=== PATIENT | male | born 1960 | race Caucasian/White ===

== ENCOUNTER 2017-09-06 01:11 | Day surgery (SDC) | payer BC ==
[2017-09-05 08:28] VITALS: BP 129/88
[2017-09-05 10:18] LABS: BASOPHIL % 0.6 % (0.0-0.2); EOSINOPHIL # 0.1 10^3/uL (0.0-0.2); EOSINOPHIL % 2.1 % (0.0-5.0); LYMPHOCYTES # 1.4 10^3/uL (1.0-4.8); LYMPHOCYTES % 26.1 % (24.0-44.0); MEAN CELL HGB 29.3 pg (26-34); MEAN CELL HGB CONCENTRATION 32.6 g/dL (33-37); MEAN CORP VOLUME 89.8 fL (78-100); MEAN PLATELET VOLUME 9.7 fL (7.8-11.0); MONOCYTES # 0.6 10^3/uL (0.3-0.8); MONOCYTES % 11.7 % (5.0-12.0); NEUTROPHIL # 3.1 10^3/uL (1.8-7.7); NEUTROPHILS % 59.3 % (41.0-85.0); RED CELL DISTRIBUTION WIDTH 13.5 % (11.5-14.5); WHITE BLOOD CELL 5.3 10^3/uL (4.5-11.0)
[2017-09-05 10:58] LABS: CALCIUM 9.3 mg/dL (8.4-10.5); CARBON DIOXIDE 25.6 mmol/L (20.0-32)
--- NOTE | 2017-09-05 17:36 | PCM.EKG ---
[facility] Test Date: 2017-09-05 Test Time: 08:35:04 Pat Name: JENNIFER FARMER Department: Patient ID: [facility]-[id number] Room: Gender: M Staff Registered Nurse: AMADA KATZ : 1960 Requested By: DAYNA PETTY Order Number: [id number] Reading MD: Ijeoma Marie Measurements Intervals [place] Rate: 63 P: 27 [place]: 192 QRS: 20 QRSD: 92 T: 52 QT: 410 QTc: 419 Interpretive Statements Normal sinus rhythm Normal ECG No previous ECG available for comparison Electronically Signed On 09-10-2017 15:32:08 CDT by Ijeoma Marie Please click the below link to view image of tracing.
[2017-09-06] VITALS (8 sets, daily range): BP systolic 106–140; BP diastolic 64–93
[~2017-09-06] VITALS: Ht 185.4 cm; Wt 103.4 kg
[~2017-09-06 01:11] MED LIST: ASCO10002 PO; CIPR500T86 PO; CYAN25002 SL; LACTATED RINGERS 1,000 ML IV SCH; MULT-275 PO; TAMS0.4C2 PO; TRAM50TA PO; TYLENOL PO ONE
[2017-09-06] MEDS ORDERED: LACTATED RINGERS 1,000 ML ONE (05:21)
[2017-09-06] MEDS ORDERED: LEVAQUIN 100 ML IV ONE (05:21)
[2017-09-06] MEDS ORDERED: LASIX ONE (05:25)
[2017-09-06] MEDS ORDERED: TYLENOL PO ONE ×2 (06:00→06:58)
[2017-09-06] MEDS ORDERED: LACTATED RINGERS 1,000 ML IV SCH ×2 (06:00→10:30)
[2017-09-06] MEDS ORDERED: ZOFRAN ONE (06:42)
[2017-09-06] MEDS ORDERED: DECADRON ONE (06:42)
[2017-09-06] MEDS ORDERED: VERSED ONE (06:43)
[2017-09-06] MEDS ORDERED: SUBLIMAZE ONE (06:43)
[2017-09-06] MEDS ORDERED: DIPRIVAN IV ONE (06:43)
[2017-09-06] MEDS ORDERED: SUBLIMAZE IV PRN (07:30)
[2017-09-06] MEDS ORDERED: DILAUDID IV PRN (07:30)
[2017-09-06] MEDS ORDERED: LASIX IV ONE (08:00)
[2017-09-06] MEDS ORDERED: ACET-685 PO (10:06)
[2017-09-06] MEDS ORDERED: NORCO 7.5MG PO PRN (10:30)
[2017-09-06] MEDS ORDERED: LASIX IV SCH (10:30)
--- NOTE | 2017-09-06 10:38 | OPH ---
DATE OF SURGERY: 09/06/2017 PREOPERATIVE DIAGNOSIS: Right renal calculus. FINAL DIAGNOSIS: Right renal calculus. PROCEDURES: Right ESWL. DESCRIPTION OF PROCEDURE: The patient was brought to the lithotripsy room, was put in supine position on the lithotripsy table. A right preop renal ultrasound was easily performed, which revealed a stone in the middle pole of the right kidney measuring 9.1 mm in diameter. There was no evidence of hydronephrosis, no cysts or masses noted. After the patient was given an LMA general anesthesia and after localization of the stone with the use of an ultrasound and fluoroscopy, a right ESWL was then performed using a Dornier Compact Delta II Lithotripter. A total of 1500 shockwaves were delivered to the stone in the middle pole of the right kidney under ultrasound guidance. After fragmentation of the stone as noted in the ultrasound, the procedure was terminated. The patient was awakened and was transferred to the recovery room in stable condition. George Vila MD DR: DELBERT/quentin JOB# [id number]
[2017-09-06] MEDS ORDERED: EPHEDRINE SULFATE ONE (11:04)
== END 2017-09-06 10:49 | disposition home or self-care (01) | DRG 694 ==
LOC: SDC 01:11
PROVIDERS: ATTEND Urology
DX: N20.0 Calculus of kidney (principal); E66.3 Overweight; Z68.28 Body mass index [BMI] 28.0-28.9, adult
CPT/HCPCS: 36415; 50590; 80048; 85025; 85610; 93005; A9150; J1100; J1956; J2250; J2405; J3010; J3490 ×2; J7120; J1940

== ENCOUNTER 2020-07-26 13:53 | Emergency (ER) | payer BC ==
[~2020-07-26] VITALS: Ht 185.4 cm; Wt 95.3 kg
[~2020-07-26 13:53] MED LIST changes: +ACET-685 PO; +ASCO100016 PO; -ASCO10002 PO; -LACTATED RINGERS 1,000 ML IV SCH; -TYLENOL PO ONE; +VITA50004 PO
--- NOTE | 2020-07-26 14:09 | NUR ---
ARRIVAL PT ARRIVED TO ED WITH C/O KIDNEY STONE. PT WAS SEEN BY DR LESLIE WHERE HE WAS TOLD HE HAS A 7.6MM RIGHT RENAL CALCULI AND WAS SENT HERE FOR CT AND POSSITBLE CYSTO WITH STENT INSERTION. BEDSIDE MONITORS APPLIED. VITAL SIGNS STABLE. BED IN LOW LOCKED POSITION, CALL LIGHT WITHIN REACH.
[2020-07-26 14:19] VITALS: BP 144/94
--- NOTE | 2020-07-26 14:22 | ER.PDOC ---
General Chief Complaint: Requesting Medical Care Stated Complaint: LOWER ABD PAIN/MALE Time seen by MD: 14:22 Source: patient Exam Limitations: no limitations History of Present Illness Initial Comments pt with hx of kidney stones here with rlq pain urology concerned about size Timing/Duration: 24 hours Severity/Quality: moderate Radiation: RLQ, flank (right) Associated Symptoms: nausea/vomiting Exacerbated by: nothing Relieved By: nothing Allergies: Coded Allergies: morphine (Verified Adverse Reaction, Intermediate, ITCHING, 07/25/20) REPORTS SEVERE ITCHING WHEN MORPHINE ADMINISTERED. Home Meds Active Scripts Acetaminophen With Codeine (TYLENOL WITH CODEINE #3 TABLET) 1 Each Tablet, 1 EACH PO Q4, #15 Prov:DAYNA PETTY MD 09/20/17 Reported Medications Tramadol Hcl (TRAMADOL HCL) 50 Mg Tablet, 1 TAB PO TID PRN for PAIN 4 - 6, #90 TAB 07/25/20 Vitamin D3/Folic Acid (Dermacinrx Purefolix Tablet) 5,000 Unit-1 Mg Tablet, 1 TAB PO QD for 30 Days, #30 TAB 0 Refills 07/25/20 Tamsulosin Hcl (TAMSULOSIN HCL) 0.4 Mg Cap.er.24h, 1 CAP PO DAILY, #30 CAP 5 Refills 07/15/17 Multivitamin With Minerals (MEN'S ONE DAILY) 1 Each Tablet, 1 EACH PO DAILY, TABLET 07/12/17 Cyanocobalamin (Vitamin B-12) (VITAMIN B-12) 2,500 Mcg Tab.subl, 5000 MCG SL DAILY 07/12/17 Ascorbic Acid (VITAMIN C) 1,000 Mg Tablet, 500 MG PO DAILY, TABLET 07/12/17 Discontinued Scripts Acetaminophen With Codeine (TYLENOL WITH CODEINE #3 TABLET) 1 Each Tablet, 1 EACH PO Q4, #15 Prov:DAYNA PETTY MD 09/06/17 Vital Signs First Vital Signs Date Time Temp Pulse Resp B/P (MAP) Pulse Ox O2 Delivery O2 Flow Rate FiO2 07/26/20 14:19 98.1 67 16 07/26/20 14:19 144/94 (111) 97 Room Air Last Vital Signs Date Time Temp Pulse Resp B/P (MAP) Pulse Ox O2 Delivery O2 Flow Rate FiO2 07/26/20 15:20 98.1 69 16 133/81 (98) 97 Room Air Past Medical History Medical History: other (kidney stones) Family History Significant Family History: no pertinent family hx Social History Smoking: non-smoker Drug Use: none Constitutional: denies no symptoms reported, denies see HPI, denies chills, denies diaphoresis, denies fever, denies malaise, denies weakness, denies other EENTM: denies no symptoms reported, denies see HPI, denies eye pain, denies blurred vision, denies tearing, denies double vision, denies ear pain, denies ear discharge, denies nose pain, denies nose congestion, denies throat pain, denies throat swelling, denies mouth pain, denies mouth swelling, denies other Respiratory: denies no symptoms reported, denies see HPI, denies cough, denies orthopnea, denies shortness of breath, denies SOB with exertion, denies SOB at rest, denies stridor, denies wheezing, denies other Cardiovascular: denies no symptoms reported, denies see HPI, denies chest pain, denies edema, denies irregular heart rate, denies lightheadedness, denies palpitations, denies syncope, denies other Gastrointestinal: abdominal pain Genitourinary: flank pain, pain Musculoskeletal: denies no symptoms reported, denies see HPI, denies back pain, denies gout, denies joint pain, denies joint swelling, denies muscle pain, denies muscle stiffness, denies neck pain, denies other Skin: denies no symptoms reported, denies see HPI, denies change in color, denies change in hair/nails, denies dryness, denies lesions, denies lumps, denies rash, denies other Psychiatric/Neurological: denies no symptoms reported, denies see HPI, denies a nxiety, denies depressed, denies emotional problems, denies headache, denies numbness, denies paresthesia, denies pre-existing deficit, denies seizure, denies tingling, denies tremors, denies weakness, denies other Endocrine: denies no symptoms reported, denies see HPI, denies excessive sweating, denies flushing, denies intolerance to cold, denies intolerance to heat, denies increased hunger, denies increased thrist, denies increased urine, denies unexplained weight gain, denies unexplaned weight loss, denies other Hematologic/Lymphatic: denies no symptoms reported, denies see HPI, denies anemia, denies blood clots, denies easy bleeding, denies easy bruising, denies swollen glands, denies other Physical Exam General Appearance: Moderate Distress HEENT: PERRL/EOMI, Normal ENT Inspection, TMs Normal, Pharynx Normal Neck: Non-Tender, Full Range of Motion, Supple, Normal Inspection Respiratory: chest non-tender, lungs clear, normal breath sounds, no respiratory distress, no accessory muscle use Cardiovascular: Normal Peripheral Pulses, Regular Rate, Rhythm, No Edema, No Gallop, No JVD, No Murmur Gastrointestinal: Tenderness (mild right abd) Back: Normal Inspection, No CVA Tenderness, No Vertebral Tenderness Extremities: Normal Range of Motion, Non-Tender, Normal Inspection, No Pedal Edema, No Calf Tenderness, Normal Capillary Refill, Pelvis Stable Neurologic/Psychiatric: electroplater automatic II-XII NML as Tested, No Motor/Sensory Deficits, Alert, Normal Mood/Affect, Oriented x 3 Skin: Normal Color, Warm/Dry Lymphatic: No Adenopathy Results/Orders Results/Orders Orders - JOHNY RANDOLPH MD Ct Abd/Pelvis Wo Iv Contrast (07/26/20 14:22) Urinalysis (07/26/20 14:46) Saline Lock (07/26/20 14:46) Ondansetron Hcl/Pf (Zofran) (07/26/20 15:04) Ketorolac Tromethamine (Toradol) (07/26/20 15:04) Ketorolac Tromethamine (Toradol) (07/26/20 15:05) Ondansetron Hcl/Pf (Zofran) (07/26/20 15:05) Ceftriaxone Sodium (Rocephin) (07/26/20 15:11) Ceftriaxone Sodium (Rocephin) (07/26/20 15:12) Vital Signs Date Time Temp Pulse Resp B/P (MAP) Pulse Ox O2 Delivery O2 Flow Rate FiO2 07/26/20 15:20 98.1 69 16 133/81 (98) 97 Room Air 07/26/20 14:19 98.1 67 16 97 07/26/20 14:19 98.1 67 16 144/94 (111) 97 Room Air 07/26/20 14:19 98.1 67 16 Administered Medications Medications (Trade) Dose Ordered Sig/Semaj Route PRN Reason Start Time Stop Time Status Last Admin Dose Admin Ceftriaxone Sodium 1000 mg/ Sodium Chloride 100 ml @ 200 mls/hr OT STAT IV 07/26/20 15:11 07/26/20 15:26 DC 07/26/20 15:16 200 MLS/HR Ketorolac Tromethamine (Toradol) 30 mg OT STAT IV 07/26/20 15:05 07/26/20 15:07 DC 07/26/20 15:13 30 MG Ondansetron HCl (Zofran) 4 mg Q4H STAT IV 07/26/20 15:05 07/26/20 15:07 DC 07/26/20 15:13 4 MG Progress Progress 3 mm stone discussed with pt and Dr Petty agree to out pt tx Departure Time of Disposition: 15:19 Disposition: 01 HOME, SELF-CARE Impression: Primary Impression: Calculus of ureter Condition: Improved Referrals: LESLIE OROZCO MD (PCP) PRIMARY CARE PROVIDER Comments ultram phenergan f/u saturday Duration or Time Spent with Pa: 20 JOHNY RANDOLPH MD Jul 26, 2020 14:22
--- NOTE | 2020-07-26 14:55 | DIREP ---
PROCEDURE:CT ABDOMEN/PELVIS W/O CONTRAST COMPARISON:[facility], CT, CT ABD/PELVIS W/O, 07/08/2017, 10:25 AM. INDICATIONS:kidney stones TECHNIQUE:Axial images were created through the abdomen and pelvis without intravenous contrast material. No oral contrast was administered. Sagittal and coronal reconstructions were performed from source images. FINDINGS: LUNG BASES:Normal. No visible pulmonary or pleural disease. LIVER:Normal. No significant liver lesions are identified. BILIARY:Multiple small gallstones PANCREAS:Normal. No lesion, fluid collection, ductal dilatation, or atrophy. SPLEEN:Normal. No enlargement or focal lesion. ADRENALS:Normal. No mass or enlargement. URINARY TRACT:Multiple bilateral renal collecting system stones. Largest measuring 5 mm in size. Mild prominence of the right collecting system. 3 mm right ureteral stone, at the level of the umbilicus. AORTA/VASCULAR:Normal. No aneurysm. RETROPERITONEUM:Normal. No mass or adenopathy. BOWEL/MESENTERY:The appendix is visualized and appears normal. There is no intestinal obstruction, free fluid, free air or mesenteric inflammatory changes. ABDOMINAL WALL:Normal. No mass or hernia. PELVIC ORGANS:Normal. No visible mass. Pelvic organs appropriate for patient age. BONES:There are degenerative changes of the spine. OTHER:Negative. CONCLUSION:Multiple bilateral renal collecting system calculi, with mild prominence of the right collecting system. Small right-sided ureteral stone at the level of the umbilicus. Dictated by: Mikie Babb MD on 07/26/2020 at 02:49 PM
[2020-07-26] MEDS ORDERED: TORADOL ONE (15:04)
[2020-07-26] MEDS ORDERED: ZOFRAN ONE (15:04)
[2020-07-26] MEDS ORDERED: TORADOL IV STA (15:05)
[2020-07-26] MEDS ORDERED: ZOFRAN IV STA (15:05)
--- NOTE | 2020-07-26 15:09 | NUR ---
MALINDA RANDOLPH ON THE PHONE WITH DOCTOR PETTY DISCUSSING PATIENT.
[2020-07-26] MEDS ORDERED: ROCEPHIN 1,000 MG in NS 100ML 100 ML IV STA (15:11)
[2020-07-26] MEDS ORDERED: ROCEPHIN ONE (15:12)
[2020-07-26 15:20] VITALS: BP 133/81
[2020-07-29] MEDS ORDERED: TRAM50TA PO (10:23)
== END 2020-07-26 15:26 | disposition home or self-care (01) ==
LOC: ER 13:53
DX: N20.1 Calculus of ureter (principal); Z79.1 Long term (current) use of non-steroidal anti-inflammatories (NSAID); Z79.899 Other long term (current) drug therapy; Z87.442 Personal history of urinary calculi; Z88.5 Allergy status to narcotic agent
CPT/HCPCS: 74176; 96374; 96375; 99284; J0696 ×2; J1885; J2405; J7050

== ENCOUNTER → 2020-07-29 | Day surgery (SDC) | payer BC ==
[2020-07-25 13:32] VITALS: BP 120/75
[2020-07-25 13:59] LABS: BASOPHIL # 0.1 10^3/uL (0.0-0.1); BASOPHIL % 0.8 % (0.0-0.2); EOSINOPHIL # 0.2 10^3/uL (0.0-0.2); LYMPHOCYTES # 2.07 10^3/uL1 (1.0-4.8); LYMPHOCYTES % 27.8 % (24.0-44.0); MEAN CORP HGB 30.1 pg (26-34); MONOCYTES # 0.9 10^3/uL (0.3-0.8); MONOCYTES % 11.7 % (5.0-12.0); NEUTROPHIL # 4.3 10^3/uL (1.8-7.7); NEUTROPHILS % 57.6 % (41.0-85.0); RED CELL DISTRIBUTION WIDTH 13.1 % (11.5-14.5)
[2020-07-25 14:09] LABS: CALCIUM 9.3 mg/dL (8.4-10.5); CARBON DIOXIDE 32.2 mmol/L (20.0-32)
--- NOTE | 2020-07-25 14:31 | PCM.EKG ---
[facility] Test Date: 2020-07-25 Test Time: 13:45:42 Pat Name: JENNIFER FARMER Department: Room: Gender: M [employer]: JOJO : 1960 Requested By: DAYNA PETTY Order [facility]: [id number] Reading MD: Measurements Intervals [place] Rate: 67 P: 59 [place]: 172 QRS: -8 QRSD: 100 T: 55 QT: 398 QTc: 420 Interpretive Statements Normal sinus rhythm Compared to ECG 09/05/2017 08:35:04 No significant changes Please click the below link to view image of tracing.
[~2020-07-29] VITALS: Ht 185.4 cm; Wt 95.3 kg
[~2020-07-29] MED LIST changes: +APRESOLINE IV PRN; +BENADRYL IV PRN; +DEMEROL IV PRN; +DIPRIVAN IV ONE; +LACTATED RINGERS 1,000 ML IV SCH; +LASIX IV ONE; +LASIX ONE; +LEVAQUIN 100 ML IV ONE; +LIDOCAINE 2% VIAL ONE; +MORPHINE SULFATE IV PRN; +NORCO 7.5MG PO PRN; +PHENERGAN IV PRN; +SUBLIMAZE IV PRN; +SUBLIMAZE ONE; +TRANDATE IV PRN; +VERSED ONE; +XOPENEX IH PRN; +ZOFRAN IV PRN; +ZOFRAN ONE
[2020-07-29 06:56] VITALS: BP_SYST 131
[2020-07-29] MEDS: D5W-1/2NS 1000ML 1,000 ML IV SCH (07:10)
[2020-07-29 10:19] VITALS: BP 156/59
[2020-07-29 10:29] VITALS: BP 115/52
[2020-07-29 10:39] VITALS: BP 131/81
[2020-07-29 10:45] VITALS: BP 123/77
--- NOTE | 2020-07-29 10:51 | OPH ---
DATE OF SURGERY: 07/29/2020 PREOPERATIVE DIAGNOSIS: Right renal calculi. FINAL DIAGNOSIS: Right renal calculi. PROCEDURE: Right ESWL. DESCRIPTION OF PROCEDURE: The patient was brought to the lithotripsy room, was put in supine position on the lithotripsy table. A right preoperative renal ultrasound was initially performed, which revealed two stones in the mid pole of the right kidney measuring 6.7 and 5.2 mm in diameter respectively. There is no evidence of obstruction or hydronephrosis noted. After the patient was given LMA general anesthesia and after localization of the stone with the use of an ultrasound and fluoroscopy, a right ESWL was then performed using a Dornier Compact Delta II lithotripter. A total of 2500 shockwaves were delivered to the two stones in the mid pole of the right kidney under ultrasound guidance. After fragmentation of the stone as noted in the ultrasound, procedure was terminated. The patient was awakened and was transferred to the recovery room in stable condition. George Vila MD DR: DELBERT/quentin JOB# [id number]
[2020-07-29 11:00] VITALS: BP 118/78
== END | disposition home or self-care (01) ==
LOC: SDC 06:50
PROVIDERS: ATTEND Urology
DX: N20.0 Calculus of kidney (principal); Z79.899 Other long term (current) drug therapy; Z82.49 Family history of ischemic heart disease and other diseases of the circulatory system; Z79.01 Long term (current) use of anticoagulants
CPT/HCPCS: 36415; 50590; 80048; 85025; 85610; 85730; 93005; J1956; J2001; J2250; J2405; J3010; J3490; J1940

== ENCOUNTER 2020-08-12 07:00 | Day surgery (SDC) | payer BC ==
[~2020-08-12] VITALS: Ht 185.4 cm; Wt 95.5 kg
[2020-08-12] VITALS (10 sets, daily range): BP systolic 130–151; BP diastolic 80–94
[~2020-08-12 07:00] MED LIST changes: -APRESOLINE IV PRN; -BENADRYL IV PRN; -DEMEROL IV PRN; -DIPRIVAN IV ONE; -LACTATED RINGERS 1,000 ML IV SCH; -LEVAQUIN 100 ML IV ONE; -LIDOCAINE 2% VIAL ONE; -MORPHINE SULFATE IV PRN; -NORCO 7.5MG PO PRN; +NS 1000ML 1,000 ML IV SCH; +NS 1000ML 1,000 ML ONE; -PHENERGAN IV PRN; -SUBLIMAZE IV PRN; -SUBLIMAZE ONE; -TRANDATE IV PRN; -VERSED ONE; -XOPENEX IH PRN; -ZOFRAN IV PRN; -ZOFRAN ONE
[2020-08-12] MEDS ORDERED: LIDOCAINE 2% VIAL ONE (07:38)
[2020-08-12] MEDS ORDERED: NS 100ML 100 ML IV ONE (07:38)
[2020-08-12] MEDS ORDERED: ZOFRAN ONE (07:38)
[2020-08-12] MEDS ORDERED: DIPRIVAN IV ONE (07:39)
[2020-08-12] MEDS ORDERED: VERSED ONE (07:39)
[2020-08-12] MEDS ORDERED: DECADRON ONE (07:44)
[2020-08-12] MEDS ORDERED: SUBLIMAZE ONE (08:04)
[2020-08-12] MEDS ORDERED: NORCO 7.5MG PO PRN (09:00)
[2020-08-12] MEDS ORDERED: LACTATED RINGERS 1,000 ML IV SCH (09:00)
--- NOTE | 2020-08-12 09:04 | OPH ---
DATE OF SURGERY: 08/12/2020 PREOPERATIVE DIAGNOSIS: Left renal calculi. FINAL DIAGNOSIS: Left renal calculi. PROCEDURE: Left ESWL. DESCRIPTION OF PROCEDURE: The patient was brought to the lithotripsy room, was put in supine position on the lithotripsy table. A left preoperative renal ultrasound was initially performed, which revealed calculi in the left kidney, two in the middle pole, measuring 6.1 and 4.7 mm in diameter respectively and one in the lower pole, measuring 5.1 mm in diameter. There is no evidence of hydronephrosis, no cysts or masses noted. After the patient was given an LMA general anesthesia and after localization of the stone with the use of an ultrasound and a C-arm fluoroscopy, a left ESWL was then performed using a Dornier Compact Delta II lithotripter. A total of 2500 shockwaves were delivered to the stones in different locations in the left kidney under ultrasound guidance. After fragmentation of the stone as noted in the ultrasound, the procedure was terminated. The patient was awakened, was transferred to the recovery room in stable condition. George Vila MD DR: DELBERT/quentin JOB# [id number]
[2020-08-12] MEDS ORDERED: SUBLIMAZE IV PRN (09:30)
[2020-08-12] MEDS ORDERED: ZOFRAN IV PRN (09:30)
[2020-08-12] MEDS ORDERED: EPHEDRINE SULFATE ONE (13:59)
== END 2020-08-12 10:05 | disposition home or self-care (01) ==
LOC: SURG 07:00
PROVIDERS: ATTEND Urology
DX: N20.0 Calculus of kidney (principal); Z88.8 Allergy status to other drugs, medicaments and biological substances; Z79.899 Other long term (current) drug therapy
CPT/HCPCS: 50590; J1100; J2001; J2250; J2405; J3010; J3490 ×2; J7030; J7050; J1940